=== PATIENT | female | born 1960 | race Hispanic/Latino ===

== ENCOUNTER 2019-05-14 08:48 | Emergency (ER) | payer OTHER ==
[2019-05-14] MEDS ORDERED: KETOROLAC TROMETHAMINE 30MG/ML ONE (09:22)
[2019-05-14] MEDS ORDERED: ONDANSETRON HCL 4 MG/2 ML VIAL ONE (09:22)
[2019-05-14] MEDS ORDERED: SODIUM CHLORIDE 0.9% 1000ML 1,000 ML IV ONE (09:24)
[2019-05-14 09:27] LABS: BASOPHILS % (AUTO) 0.3 % (0.0-5.0); EOSINOPHILS % (AUTO) 1.1 % (0.0-8.0); HEMATOCRIT 34.9 % (36-48); LYMPHOCYTES % (AUTO) 12.8 % (21.0-51.0); MEAN CORPUSCULAR HEMOGLOBIN 30.2 pg (27.0-33.0); MEAN CORPUSCULAR HGB CONC 33.2 g/dL (32.0-36.0); MEAN CORPUSCULAR VOLUME 90.9 fL (79-99); MONOCYTES % (AUTO) 4.4 % (3.0-13.0); NEUTROPHILS % (AUTO) 81.3 % (40.0-77.0); PLATELET COUNT (AUTO) 566 K/uL (130-400); RED BLOOD CELL COUNT(AUTO) 3.84 MIL/uL (4.00-5.50); RED CELL DISTRIBUTION WIDTH 13.8 % (11.0-15.5); WHITE BLOOD COUNT (AUTO) 8.7 K/uL (4.8-10.8)
[2019-05-14 09:34] LABS: BILIRUBIN,URINE Negative (NEGATIVE); COLOR,URINE Yellow (YELLOW); GLUCOSE, URINE (UA) Negative (NEGATIVE); KETONES,URINE Negative (NEGATIVE); LEUKOCYTE ESTERASE ,URINE Negative (NEGATIVE); NITRATE,URINE Negative (NEGATIVE); OCCULT BLOOD,URINE Negative (NEGATIVE); PROTEIN,URINE Negative (NEGATIVE); UROBILINOGEN,URINE 0.2 mg/dL (0.2-1.0)
[2019-05-14 09:36] LABS: CREATININE 0.9 mg/dL (0.5-1.5); POTASSIUM 3.8 mmol/L (3.5-5.1)
[2019-05-14 09:39] LABS: ALBUMIN 3.7 g/dL (3.5-5.0); BILIRUBIN,DIRECT 0.1 mg/dL (0.0-0.3); BILIRUBIN,TOTAL 0.8 mg/dL (0.2-1.0); TOTAL PROTEIN, SERUM 7.6 g/dL (6.0-8.3)
[2019-05-14 09:40] LABS: APPEARANCE,URINE CLEAR (CLEAR)
== END 2019-05-14 11:33 | disposition home or self-care (01) ==
LOC: EDH 08:48
DX: R42 Dizziness and giddiness (principal)
CPT/HCPCS: 36415; 80048; 80076; 81003; 82550; 83690; 84484; 85025; 87804 ×2; 93005; 96361; 96374; 96375; 99284; J1885; J2405; J7030

== ENCOUNTER 2019-08-10 08:11 | Day surgery (SDC) | payer OTHER ==
[~2019-08-10] VITALS: Ht 152.4 cm; Wt 67.1 kg
[~2019-08-10 08:11] MED LIST: SODIUM CHLORIDE 0.9% 1000ML 1,000 ML IV ONE
[2019-08-10 08:54] VITALS: BP 146/82
[2019-08-10] MEDS ORDERED: PROPOFOL 10 MG/ML 20ML VIAL IV ONE (10:01)
[2019-08-10 10:21] VITALS: BP 127/72
[2019-08-10 10:26] VITALS: BP 110/89
[2019-08-10 10:32] VITALS: BP 137/76
[2019-08-10 10:38] VITALS: BP 136/72
[2019-08-19] MEDS ORDERED: METAMUCIL POWDER PO (17:54)
[2019-08-19] MEDS ORDERED: TYLENOL PM PO (17:54)
[2019-08-19] MEDS ORDERED: ACET-66 PO (17:54)
== END 2019-08-10 10:50 | disposition home or self-care (01) ==
LOC: ENDO 08:11 → DAH 08:11 → EDSTATUS 09:15 → ENDO 10:50
PROVIDERS: ATTEND Internal Medicine Gastroenterology
DX: K22.9 Disease of esophagus, unspecified (principal); R91.8 Other nonspecific abnormal finding of lung field; R93.3 Abnormal findings on diagnostic imaging of other parts of digestive tract; R93.89 Abnormal findings on diagnostic imaging of other specified body structures; R93.5 Abnormal findings on diagnostic imaging of other abdominal regions, including retroperitoneum; Z98.890 Other specified postprocedural states
CPT/HCPCS: 43237; A4215; A4221; A4222; A4223; A4606; A4620; A4657; A4663; J2704; J7030; 43259

== ENCOUNTER 2019-08-20 07:15 | Day surgery (SDC) | payer OTHER ==
[2019-08-19 13:18] LABS: BASOPHILS % (AUTO) 0.6 % (0.0-5.0); EOSINOPHILS % (AUTO) 1.2 % (0.0-8.0); HEMATOCRIT 31.7 % (36-48); LYMPHOCYTES % (AUTO) 27.2 % (21.0-51.0); MEAN CORPUSCULAR HEMOGLOBIN 29.8 pg (27.0-33.0); MEAN CORPUSCULAR HGB CONC 32.5 g/dL (32.0-36.0); MEAN CORPUSCULAR VOLUME 91.6 fL (79-99); MONOCYTES % (AUTO) 6.4 % (3.0-13.0); NEUTROPHILS % (AUTO) 64.4 % (40.0-77.0); PLATELET COUNT (AUTO) 520 K/uL (130-400); RED BLOOD CELL COUNT(AUTO) 3.46 MIL/uL (4.00-5.50); RED CELL DISTRIBUTION WIDTH 14.5 % (11.0-15.5); WHITE BLOOD COUNT (AUTO) 8.4 K/uL (4.8-10.8)
[2019-08-19 13:37] LABS: ALBUMIN 3.9 g/dL (3.5-5.0); BILIRUBIN,TOTAL 0.5 mg/dL (0.2-1.0); POTASSIUM 3.7 mmol/L (3.5-5.1); TOTAL PROTEIN, SERUM 7.7 g/dL (6.0-8.3)
[2019-08-19 13:46] LABS: INR 0.97 (0.85-1.15); PARTIAL THROMBOPLASTIN TIME 29.2 SEC (26.3-35.5); PROTHROMBIN TIME 10.5 SEC (9.6-11.6)
[2019-08-19 17:30] VITALS: BP 140/61
[~2019-08-20] VITALS: Ht 152.4 cm; Wt 66.9 kg
[2019-08-20] VITALS (20 sets, daily range): BP systolic 110–134; BP diastolic 58–77
[~2019-08-20 07:15] MED LIST changes: +ACET-66 PO; +METAMUCIL POWDER PO; -SODIUM CHLORIDE 0.9% 1000ML 1,000 ML IV ONE; +TYLENOL PM PO
[2019-08-20] MEDS ORDERED: LACTATED RINGERS 1000ML 1,000 ML IV ONE (08:42)
[2019-08-20] MEDS: CEFAZOLIN SODIUM 1 GM VIAL ONE ×2 (08:52→11:15)
[2019-08-20] MEDS ORDERED: ONDANSETRON HCL 4 MG/2 ML VIAL ONE (11:14)
[2019-08-20] MEDS ORDERED: MIDAZOLAM HCL 1 MG/ML 2ML VIAL ONE (11:14)
[2019-08-20] MEDS ORDERED: LIDOCAINE PF 2% 5ML ABBOJECT ONE ×2 (11:14→11:16)
[2019-08-20] MEDS ORDERED: NEOSTIGMINE 5MG/5ML SYR IV ONE (11:14)
[2019-08-20] MEDS ORDERED: ROCURONIUM 10MG/1ML SYR 10 MG/ML ML ONE (11:14)
[2019-08-20] MEDS ORDERED: GLYCOPYRROLATE 1 MG/5 ML SYRINGE ONE (11:14)
[2019-08-20] MEDS ORDERED: PROPOFOL 10 MG/ML 20ML VIAL IV ONE (11:14)
[2019-08-20] MEDS ORDERED: FENTANYL CITRATE PF 50 MCG/1 ML 2ML VIAL ONE (11:14)
[2019-08-20] MEDS ORDERED: DEXAMETHASONE SOD PHOSPHATE 10MG/ML 1ML VIAL ONE (11:14)
[2019-08-20] MEDS ORDERED: SUCCINYLCHOLINE CHLORIDE 20 MG/ML 10 ML VIAL ONE (11:16)
[2019-08-20] MEDS ORDERED: TRAM50TA4 PO (12:30)
[2019-08-20] MEDS ORDERED: TRAMADOL HCL 50 MG TABLET PO PRN ×2 (12:45)
[2019-08-20] MEDS ORDERED: ACETAMINOPHEN 325 MG TAB PO PRN (12:45)
[2019-08-20] MEDS ORDERED: MEPERIDINE-PF 25 MG/ML SYG ONE (13:04)
--- NOTE | 2019-08-20 13:50 | NUR ---
PATIENT ARRIVED TO DAY PATIENT VIA STRETCHER BY WHIT NAVARRO. PATIENT AAOX3, RESPIRATIONS UNLABORED, VITAL SIGNS STABLE. DRESSING TO ANTERIOR NECK PRESENT, CLEAN/DRY/INTACT. NO BLEEDING OR DRAINAGE NOTED. PATIENT DENIES ANY PAIN AT THIS TIME.
--- NOTE | 2019-08-20 14:26 | NUR ---
DISCHARGE INSTRUCTIONS PROVIDED VIA TELEPHONE TO PATIENT'S SON (CAMILLA). FOLLOW UP APPOINTMENTS PROVIDED AND PRESCRIPTIONS PROVIDED TO PATIENT WELL. INSTRUCTIONS ON INCISION CARE WERE PROVIDED TO PATIENT AND SON. ALL QUESTIONS/CONCERNS ADDRESSED.
--- NOTE | 2019-08-20 14:55 | NUR ---
PATIENT DISCHARGED FROM FACILITY VIA WHEELCHAIR AND ASSISTED INTO PRIVATE VEHICLE DRIVEN BY SON.
== END 2019-08-20 14:55 | disposition home or self-care (01) ==
LOC: DAH 07:15
PROVIDERS: ATTEND Thoracic Surgery (Cardiothoracic Vascular Surgery)
DX: R91.8 Other nonspecific abnormal finding of lung field (principal); K22.9 Disease of esophagus, unspecified; M19.90 Unspecified osteoarthritis, unspecified site; E03.9 Hypothyroidism, unspecified; Z79.899 Other long term (current) drug therapy; Z79.01 Long term (current) use of anticoagulants
CPT/HCPCS: 36415; 39402; 71045; 71046; 80053; 85025; 85610; 85730; 86850; 86900; 86901; 86922; 93005; A4213; A4215; A4221; A4222; A4223; A4663; A6260; G0168; J0330; J0690; J1100; J2001 ×2; J2175; J2250; J2405; J2704; J2710; J3010; J3490; J7030 ×2; J7120 ×2

== ENCOUNTER 2019-09-20 08:00 | Inpatient (IN) | payer OTHER ==
[~2019-09-20] VITALS: Ht 149.9 cm; Wt 66.2 kg
[2019-09-20 08:43] LABS: BASOPHILS % (AUTO) 0.8 % (0.0-5.0); EOSINOPHILS % (AUTO) 2.1 % (0.0-8.0); HEMATOCRIT 31.7 % (36-48); LYMPHOCYTES % (AUTO) 38.8 % (21.0-51.0); MEAN CORPUSCULAR HEMOGLOBIN 30.4 pg (27.0-33.0); MEAN CORPUSCULAR HGB CONC 32.8 g/dL (32.0-36.0); MEAN CORPUSCULAR VOLUME 92.7 fL (79-99); MONOCYTES % (AUTO) 6.8 % (3.0-13.0); NEUTROPHILS % (AUTO) 51.2 % (40.0-77.0); PLATELET COUNT (AUTO) 532 K/uL (130-400); RED BLOOD CELL COUNT(AUTO) 3.42 MIL/uL (4.00-5.50); RED CELL DISTRIBUTION WIDTH 14.1 % (11.0-15.5); WHITE BLOOD COUNT (AUTO) 7.9 K/uL (4.8-10.8)
[2019-09-20 09:04] LABS: POTASSIUM 3.6 mmol/L (3.5-5.1)
[2019-09-20 09:13] LABS: INR 0.96 (0.85-1.15); PARTIAL THROMBOPLASTIN TIME 29.7 SEC (26.3-35.5); PROTHROMBIN TIME 10.4 SEC (9.6-11.6)
[2019-09-20 12:26] VITALS: BP 149/77
--- NOTE | 2019-09-20 14:35 | NUR ---
PLATELET INFORMED Jonn JOYCE RN OF ABNORMAL PLATELET LEVEL. PER DR. TATUM, PROCEED WITH PLANNED PROCEDURE.
[2019-09-21] VITALS (25 sets, daily range): BP systolic 70–155; BP diastolic 45–85
[2019-09-21] MEDS ORDERED: LACTATED RINGERS 1000ML 1,000 ML IV ONE (10:05)
[2019-09-21] MEDS ORDERED: CEFAZOLIN SODIUM 1 GM VIAL ONE (12:52)
[2019-09-21] MEDS ORDERED: CEFUROXIME SODIUM 1.5 GM VIAL ONE (12:54)
[2019-09-21] MEDS ORDERED: MIDAZOLAM HCL 1 MG/ML 2ML VIAL ONE (13:47)
[2019-09-21] MEDS ORDERED: SUCCINYLCHOLINE CHLORIDE 20 MG/ML 10 ML VIAL ONE (13:47)
[2019-09-21] MEDS ORDERED: DEXAMETHASONE SOD PHOSPHATE 10MG/ML 1ML VIAL ONE (13:47)
[2019-09-21] MEDS ORDERED: GLYCOPYRROLATE 1 MG/5 ML SYRINGE ONE (13:47)
[2019-09-21] MEDS ORDERED: NEOSTIGMINE 5MG/5ML SYR IV ONE (13:47)
[2019-09-21] MEDS ORDERED: ONDANSETRON HCL 4 MG/2 ML VIAL ONE (13:47)
[2019-09-21] MEDS ORDERED: LIDOCAINE PF 2% 5ML ABBOJECT ONE ×2 (13:47→13:48)
[2019-09-21] MEDS ORDERED: PROPOFOL 10 MG/ML 20ML VIAL IV ONE (13:47)
[2019-09-21] MEDS ORDERED: FENTANYL CITRATE PF 50 MCG/1 ML 2ML VIAL ONE (13:47)
[2019-09-21] MEDS ORDERED: ROCURONIUM 10MG/1ML SYR 10 MG/ML ML ONE (13:48)
[2019-09-21] MEDS ORDERED: MEPERIDINE-PF 25 MG/ML SYG ONE ×4 (15:14→16:24)
[2019-09-21] MEDS ORDERED: Q-PUMP 1 EACH IRRIG SCH (15:30)
[2019-09-21] MEDS ORDERED: ROPIVACAINE 0.5% 5MG/ML 30ML IJ ONE (15:40)
[2019-09-21] MEDS ORDERED: TRAMADOL HCL 50 MG TABLET PO PRN (16:45)
[2019-09-21] MEDS: KETOROLAC TROMETHAMINE 30MG/ML IV SCH ×2 (17:59→23:07)
[2019-09-21] MEDS ORDERED: KETOROLAC TROMETHAMINE 30MG/ML IV PRN (18:00)
[2019-09-21] MEDS: TRAMADOL HCL 50 MG TABLET PO PRN (20:41)
[2019-09-21] MEDS: CEFAZOLIN SODIUM 1 GM VIAL IVP SCH (23:08)
[2019-09-22 03:10] VITALS: BP 120/74
[2019-09-22 05:40] LABS: HEMATOCRIT 29.3 % (36-48); MEAN CORPUSCULAR HEMOGLOBIN 30.1 pg (27.0-33.0); MEAN CORPUSCULAR HGB CONC 32.4 g/dL (32.0-36.0); MEAN CORPUSCULAR VOLUME 92.7 fL (79-99); RED BLOOD CELL COUNT(AUTO) 3.16 MIL/uL (4.00-5.50); RED CELL DISTRIBUTION WIDTH 14.6 % (11.0-15.5); WHITE BLOOD COUNT (AUTO) 11.2 K/uL (4.8-10.8)
[2019-09-22 05:57] LABS: CREATININE 1.1 mg/dL (0.5-1.5); POTASSIUM 4.6 mmol/L (3.5-5.1)
[2019-09-22] MEDS: KETOROLAC TROMETHAMINE 30MG/ML IV SCH ×3 (06:24→18:30)
[2019-09-22] MEDS: TRAMADOL HCL 50 MG TABLET PO PRN ×3 (06:24→20:43)
[2019-09-22] MEDS: CEFAZOLIN SODIUM 1 GM VIAL IVP SCH ×2 (06:24→15:01)
[2019-09-22 08:30] VITALS: BP 124/75
--- NOTE | 2019-09-22 10:47 | NUR ---
CM NOTE/IA MEET WITH PATIENT IN ROOM. PER PATIENT LIVES WITH SPOUSE AND GRANDCHILDREN STAY WITH THEM AT TIMES, INDEPENDENT WITH ADLS, NO DME IN USE, AND FEELS SAFE TO RETURN HOME ONCE DISCHARGED. Addendum: 09/23/19 at 1048 by ALMAZ NGUYEN RN CM Amended: Links added.
[2019-09-22 11:00] VITALS: BP 129/64
[2019-09-22 16:00] VITALS: BP 126/74
[2019-09-22 19:00] VITALS: BP 128/68
[2019-09-23] VITALS: BP 133/72
[2019-09-23] MEDS: KETOROLAC TROMETHAMINE 30MG/ML IV SCH ×4 (01:14→18:15)
[2019-09-23 04:00] VITALS: BP 121/68
[2019-09-23] MEDS: TRAMADOL HCL 50 MG TABLET PO PRN ×3 (05:21→21:40)
[2019-09-23 08:00] VITALS: BP 127/75
[2019-09-23 12:00] VITALS: BP 136/77
[2019-09-23] MEDS ORDERED: ROPIVACAINE 0.2% 2MG/ML 100ML VIAL IJ ONE (12:00)
[2019-09-23 16:00] VITALS: BP 137/80
[2019-09-23 20:00] VITALS: BP 148/70
[2019-09-24] VITALS: BP 149/82
[2019-09-24] MEDS: KETOROLAC TROMETHAMINE 30MG/ML IV SCH
[2019-09-24 04:00] VITALS: BP 143/76
[2019-09-24] MEDS: TRAMADOL HCL 50 MG TABLET PO PRN ×3 (04:15→17:39)
[2019-09-24 07:00] VITALS: BP 135/75
--- NOTE | 2019-09-24 08:00 | NUR ---
ASSESSMENT ENCOUNTERED PT A&OX3, CALM COOPERATIVE BUT DOES NOT APPEAR TO BE IN ANY DISTRESS NOR ANY NEURO DEFICITS PRESENT. PT DOES C/O RT CHEST TUBE SITE DISCOMFORT WITH ACTIVITY AND DYSPNEA ON EXERTION. PT IS AMBULATORY, GAIT SLOW BUT STEADY WITH 1-2 PERSON ASSIST. PT IS ABLE TO TOLERATE FOODS, FLUIDS AND MEDICATION WITH NO THROAT CLEARING OR COUGH. CALL LIGHT WITHIN REACH.
[2019-09-24 11:00] VITALS: BP 127/74
[2019-09-24 16:00] VITALS: BP 130/76
[2019-09-24 20:00] VITALS: BP 140/82
[2019-09-24] MEDS: ACETAMINOPHEN 325 MG TAB PO PRN (22:08)
[2019-09-25] VITALS (7 sets, daily range): BP systolic 117–146; BP diastolic 72–95
[2019-09-25] MEDS: TRAMADOL HCL 50 MG TABLET PO PRN ×3 (02:12→16:10)
[2019-09-25] MEDS: ACETAMINOPHEN 325 MG TAB PO PRN (06:46)
--- NOTE | 2019-09-25 08:00 | NUR ---
ASSESSMENT ENCOUNTERED PT IN BED, ASLEEP BUT AROUSEABLE, A&OX3, C/O CONTINUOUS RT CHEST PAIN WITH CHEST TUBE IN PLACE S/P RL LOBECTOMY, PT IS PENDING CHEST TUBE REMOVAL BY DR AHMADI, NO LEAK PRESENT, CHEST TUBE SECURED, QPUMP IN PLACE AND SECURED WITH CHEST TUBE DRESSING. PT HAS NOT BEEN HUNGRY AND RELUCTANT TO REPOSITION SELF DUE TO CHEST TUBE DISCOMFORT. CALL LIGHT WITHIN REACH.
[2019-09-25] MEDS: HYDROCODONE/ACETAMINOPHEN 10/325 MG TAB PO PRN ×2 (08:24→18:04)
--- NOTE | 2019-09-25 09:30 | NUR ---
DR VALLE AT BEDSIDE UPDATE GIVEN, ORDERS RECEIVED.
--- NOTE | 2019-09-25 10:00 | NUR ---
CHEST TUBE REMOVED AND QPUMP REMOVED, TOLERATED WELL, CALL LIGHT WITHIN REACH.
[2019-09-25] MEDS ORDERED: GABAPENTIN 100 MG CAPSULE PO SCH (21:00)
[2019-09-25] MEDS: ENOXAPARIN SODIUM 30 MG/0.3 ML SQ SCH (21:12)
[2019-09-26] MEDS: HYDROCODONE/ACETAMINOPHEN 10/325 MG TAB PO PRN (03:15)
[2019-09-26 03:45] VITALS: BP 144/84
[2019-09-26] MEDS: TRAMADOL HCL 50 MG TABLET PO PRN (05:54)
[2019-09-26 07:30] VITALS: BP 132/85
[2019-09-26] MEDS ORDERED: GABAPENTIN 300 MG CAPSULE ONE (07:45)
[2019-09-26] MEDS: GABAPENTIN 300 MG CAPSULE PO SCH ×3 (07:51→20:59)
[2019-09-26 11:43] VITALS: BP 136/78
[2019-09-26 15:30] VITALS: BP 121/53
[2019-09-26 19:54] VITALS: BP 122/64
[2019-09-26] MEDS: ENOXAPARIN SODIUM 30 MG/0.3 ML SQ SCH (21:00)
[2019-09-26 23:18] VITALS: BP 129/76
[2019-09-27 03:48] VITALS: BP 121/73
[2019-09-27] MEDS: HYDROCODONE/ACETAMINOPHEN 10/325 MG TAB PO PRN (04:28)
[2019-09-27] MEDS: GABAPENTIN 300 MG CAPSULE PO SCH ×3 (07:19→20:09)
--- NOTE | 2019-09-27 08:00 | NUR ---
ASSESSMENT PT IS AAOX3 DENIES CP DENIES SOB DENIES NV AT THIS TIME, RESTING IN BED. NO VISIBLE SIGNS OF DISTRESS NOTED. CALL LIGHT WITHIN REACH.
[2019-09-27 08:40] VITALS: BP 130/80
[2019-09-27] MEDS: TRAMADOL HCL 50 MG TABLET PO PRN ×2 (10:07→20:09)
[2019-09-27 12:45] VITALS: BP 109/65
[2019-09-27 18:30] VITALS: BP 127/49
[2019-09-27] MEDS: ENOXAPARIN SODIUM 30 MG/0.3 ML SQ SCH (20:10)
[2019-09-27 20:31] VITALS: BP 124/68
[2019-09-27 23:58] VITALS: BP 115/66
[2019-09-28 03:56] VITALS: BP 111/75
--- NOTE | 2019-09-28 08:00 | NUR ---
SARAH PAEZ IN TO SEE PT. DC ORDERS GIVEN,
[2019-09-28 08:15] VITALS: BP 125/71
[2019-09-28] MEDS: TRAMADOL HCL 50 MG TABLET PO PRN (08:18)
[2019-09-28] MEDS ORDERED: GABA300C PO (08:47)
[2019-09-28] MEDS ORDERED: TRAM50TA4 PO (08:47)
[2019-09-28] MEDS ORDERED: ACET-2247 PO (08:47)
[2019-09-28] MEDS ORDERED: CYCLOBENZAPRINE HCL 10 MG TABLET PO PRN (09:15)
[2019-09-28] MEDS: GABAPENTIN 300 MG CAPSULE PO SCH (09:30)
[2019-09-28 11:43] VITALS: BP 111/82
--- NOTE | 2019-09-28 13:30 | NUR ---
DISCHARGED NOW USING TEACH BACK.VERBALIZES UNDERSTANDING OF ALL INST. GIVEN. RX ELECTRONIC SENT TO PHARM. OF CHOICE. SALINE LOCK AND HEART MONITOR REMOVED . WHEELED DOWN STAIRS . FAMILY WAITING.
== END 2019-09-28 13:57 | disposition home or self-care (01) | DRG 165 ==
LOC: EDSTATUS 08:00 → DAHIP 09-21 09:33 → 4AH 09-21 17:08 → 4CH 09-26 17:05
PROVIDERS: ADMIT Thoracic Surgery (Cardiothoracic Vascular Surgery); ATTEND Thoracic Surgery (Cardiothoracic Vascular Surgery)
PROC: 0BTF0ZZ Resection of Right Lower Lung Lobe, Open Approach (ICD-10-PCS; principal; 2019-09-21 13:48)
DX: R91.8 Other nonspecific abnormal finding of lung field (principal); E87.70 Fluid overload, unspecified; G89.12 Acute post-thoracotomy pain; E03.9 Hypothyroidism, unspecified; R59.0 Localized enlarged lymph nodes; R06.89 Other abnormalities of breathing; M19.90 Unspecified osteoarthritis, unspecified site; Z79.899 Other long term (current) drug therapy; Z80.42 Family history of malignant neoplasm of prostate; Z80.0 Family history of malignant neoplasm of digestive organs; Z20.828 Contact with and (suspected) exposure to other viral communicable diseases
CPT/HCPCS: 36415; 71045; 80048; 85025; 85027; 85610; 85730; 86850; 86900; 86901; 86922; 87635; 97039; A7048; G0378; J0330; J0690; J0697; J1100; J1650; J1885; J2001; J2175; J2250; J2405; J2704; J2710; J2795; J3010; J3490; J7030; J7040; J7120

== ENCOUNTER 2021-10-15 02:07 | Emergency (ER) | payer MEDICARE, OTHER ==
[~2021-10-15] VITALS: Ht 160 cm; Wt 93.4 kg
[~2021-10-15 02:07] MED LIST changes: +ACET-2247 PO; -ACET-66 PO; +GABA300C PO; -METAMUCIL POWDER PO; +TRAM50TA4 PO; -TYLENOL PM PO
[2021-10-15 02:33] LABS: BASOPHILS % (AUTO) 0.4 % (0.0-5.0); EOSINOPHILS % (AUTO) 0.7 % (0.0-8.0); HEMATOCRIT 32.2 % (36-48); LYMPHOCYTES % (AUTO) 22.6 % (21.0-51.0); MEAN CORPUSCULAR HEMOGLOBIN 31.7 pg (27.0-33.0); MEAN CORPUSCULAR HGB CONC 33.5 g/dL (32.0-36.0); MEAN CORPUSCULAR VOLUME 94.4 fL (79-99); MONOCYTES % (AUTO) 2.6 % (3.0-13.0); NEUTROPHILS % (AUTO) 73.2 % (40.0-77.0); PLATELET COUNT (AUTO) 510 K/uL (130-400); RED BLOOD CELL COUNT(AUTO) 3.41 MIL/uL (4.00-5.50); RED CELL DISTRIBUTION WIDTH 13.3 % (11.0-15.5); WHITE BLOOD COUNT (AUTO) 13.3 K/uL (4.8-10.8)
[2021-10-15 02:36] LABS: APPEARANCE,URINE CLEAR (CLEAR); BILIRUBIN,URINE SMALL (NEGATIVE); COLOR,URINE YELLOW (YELLOW); GLUCOSE, URINE (UA) NEGATIVE (NEGATIVE); KETONES,URINE 5 mg/dL (NEGATIVE); LEUKOCYTE ESTERASE ,URINE TRACE (NEGATIVE); NITRATE,URINE NEGATIVE (NEGATIVE); OCCULT BLOOD,URINE NEGATIVE (NEGATIVE); PROTEIN,URINE TRACE mg/dL (NEGATIVE); UROBILINOGEN,URINE 0.2 mg/dL (0.2-1.0)
[2021-10-15] MEDS ORDERED: LIDOCAINE HCL 2% VISCOUS 15 ML UDCUP ONE (02:40)
[2021-10-15] MEDS ORDERED: MAG/ALUM/SIMETH 30 ML UDCUP ONE (02:40)
[2021-10-15] MEDS ORDERED: PANTOPRAZOLE 40 MG/VIAL ONE (02:40)
[2021-10-15 02:44] LABS: CARBON DIOXIDE 21 mmol/L (21-32); CHLORIDE 108 mmol/L (101-111); CREATININE 1.3 mg/dL (0.5-1.5); GLOMERULAR FILTR. RATE CALC 44 mL/min (>60); GLUCOSE,RANDOM 117 mg/dL (70-105); POTASSIUM 3.9 mmol/L (3.5-5.1); SODIUM SERUM 141 mmol/L (136-145); UREA NITROGEN, BLOOD 29 mg/dL (7-18)
[2021-10-15 02:51] LABS: ALANINE AMINOTRANSFERASE 34 U/L (12-78); ALBUMIN 3.5 g/dL (3.5-5.0); ASPARTATE AMINOTRANSFERASE 12 U/L (10-37); LIPASE 86 U/L (114-286); TOTAL PROTEIN, SERUM 7.1 g/dL (6.0-8.3)
[2021-10-15 03:00] LABS: BACTERIA,URINE None Seen /HPF (None Seen); RBC,URINE 0-1 /HPF (0-1); SQUAMOUS EPITHELIAL CELL,UR Moderate /HPF (0-2)
[2021-10-15] MEDS ORDERED: PANTOPRAZOLE 40 MG/VIAL IVP ONE (03:00)
[2021-10-15] MEDS ORDERED: LIDOCAINE HCL 2% VISCOUS 15 ML UDCUP PO ONE (03:00)
[2021-10-15] MEDS ORDERED: MAG/ALUM/SIMETH 30 ML UDCUP PO ONE (03:00)
[2021-10-15 03:01] LABS: HYALINE CASTS, URINE 0-1 /LPF (0-1 /LPF)
[2021-10-15] MEDS ORDERED: PANT40GR PO (03:49)
[2021-10-15 03:55] VITALS: BP 143/85
== END 2021-10-15 03:59 | disposition home or self-care (01) ==
LOC: EDH 02:07
DX: K29.70 Gastritis, unspecified, without bleeding (principal); Z79.899 Other long term (current) drug therapy; Z98.890 Other specified postprocedural states
CPT/HCPCS: 99285; 96374; 71045; 84484; 80053; 83690; 85025; 87088; 81001; 36415; 93005; C9113

== ENCOUNTER 2021-11-18 08:06 | Emergency (ER) | payer MEDICARE ==
[~2021-11-18] VITALS: Ht 152.4 cm; Wt 72.6 kg
[~2021-11-18 08:06] MED LIST changes: +PANT40GR PO
[2021-11-18 08:27] LABS: APPEARANCE,URINE CLEAR (CLEAR); BILIRUBIN,URINE SMALL (NEGATIVE); COLOR,URINE YELLOW (YELLOW); GLUCOSE, URINE (UA) NEGATIVE (NEGATIVE); KETONES,URINE NEGATIVE (NEGATIVE); LEUKOCYTE ESTERASE ,URINE NEGATIVE (NEGATIVE); NITRATE,URINE NEGATIVE (NEGATIVE); OCCULT BLOOD,URINE NEGATIVE (NEGATIVE); PROTEIN,URINE NEGATIVE (NEGATIVE); UROBILINOGEN,URINE 0.2 mg/dL (0.2-1.0)
[2021-11-18 08:28] LABS: BASOPHILS % (AUTO) 0.3 % (0.0-5.0); EOSINOPHILS % (AUTO) 0.9 % (0.0-8.0); HEMATOCRIT 31.2 % (36-48); LYMPHOCYTES % (AUTO) 24.3 % (21.0-51.0); MEAN CORPUSCULAR HEMOGLOBIN 31.8 pg (27.0-33.0); MEAN CORPUSCULAR HGB CONC 33.7 g/dL (32.0-36.0); MEAN CORPUSCULAR VOLUME 94.5 fL (79-99); MONOCYTES % (AUTO) 5.5 % (3.0-13.0); NEUTROPHILS % (AUTO) 68.5 % (40.0-77.0); PLATELET COUNT (AUTO) 582 K/uL (130-400); RED CELL DISTRIBUTION WIDTH 13.7 % (11.0-15.5); WHITE BLOOD COUNT (AUTO) 15.9 K/uL (4.8-10.8)
[2021-11-18] MEDS ORDERED: 0.9%NACL 1000ML 1,000 ML IV ONE (08:30)
[2021-11-18] MEDS ORDERED: LIDOCAINE HCL 2% VISCOUS 15 ML UDCUP PO ONE (08:30)
[2021-11-18] MEDS ORDERED: MAG/ALUM/SIMETH 30 ML UDCUP PO ONE (08:30)
[2021-11-18] MEDS ORDERED: KETOROLAC 30MG VIAL (30MG/ML) IVP ONE (08:30)
[2021-11-18] MEDS ORDERED: PANTOPRAZOLE 40 MG/VIAL IVP ONE (08:30)
[2021-11-18] MEDS ORDERED: DICYCLOMINE HCL 10 MG/5 ML ML PO ONE (08:30)
[2021-11-18 08:40] LABS: CARBON DIOXIDE 28 mmol/L (21-32); CHLORIDE 104 mmol/L (101-111); CREATININE 1.2 mg/dL (0.5-1.5); GLOMERULAR FILTR. RATE CALC 48 mL/min (>60); GLUCOSE,RANDOM 106 mg/dL (70-105); POTASSIUM 3.4 mmol/L (3.5-5.1); SODIUM SERUM 142 mmol/L (136-145); UREA NITROGEN, BLOOD 18 mg/dL (7-18)
[2021-11-18 08:44] LABS: ALANINE AMINOTRANSFERASE 48 U/L (12-78); ALBUMIN 3.3 g/dL (3.5-5.0); ASPARTATE AMINOTRANSFERASE 18 U/L (10-37); TOTAL PROTEIN, SERUM 7.4 g/dL (6.0-8.3)
[2021-11-18 08:45] LABS: LIPASE < 50 U/L (114-286)
[2021-11-18] MEDS ORDERED: ZOSYN 3.375GM +NS 50ML IV SCH (11:30)
[2021-11-18] MEDS ORDERED: AMOX1TAB16 PO (11:41)
[2021-11-18 12:07] VITALS: BP 129/69
[2021-11-19] MEDS ORDERED: FERR-72 PO (14:28)
== END 2021-11-18 12:15 | disposition home or self-care (01) ==
LOC: EDH 08:06
DX: K80.50 Calculus of bile duct without cholangitis or cholecystitis without obstruction (principal); D72.829 Elevated white blood cell count, unspecified; D64.9 Anemia, unspecified; Z79.899 Other long term (current) drug therapy; Z98.890 Other specified postprocedural states
CPT/HCPCS: 99285; 96365; 76705; 96361; 96375; 84484; 80053; 83690; 85025; 81003; 36415; 93005; J7030; J1885; J2543; C9113

== ENCOUNTER 2021-11-19 07:05 | Observation (INO) | payer MEDICARE ==
[~2021-11-19] VITALS: Ht 152.4 cm; Wt 72.6 kg
[~2021-11-19 07:05] MED LIST changes: +AMOX1TAB16 PO
[2021-11-19] MEDS ORDERED: ONDANSETRON 4MG INJ IVP ONE (07:30)
[2021-11-19] MEDS ORDERED: KETOROLAC 30MG VIAL (30MG/ML) IVP ONE (07:30)
[2021-11-19] MEDS ORDERED: 0.9%NACL 1000ML 1,000 ML IV ONE (07:30)
[2021-11-19 08:21] LABS: BASOPHILS % (AUTO) 0.4 % (0.0-5.0); EOSINOPHILS % (AUTO) 1.4 % (0.0-8.0); HEMATOCRIT 25.9 % (36-48); LYMPHOCYTES % (AUTO) 24.4 % (21.0-51.0); MEAN CORPUSCULAR HEMOGLOBIN 31.5 pg (27.0-33.0); MEAN CORPUSCULAR HGB CONC 32.8 g/dL (32.0-36.0); MEAN CORPUSCULAR VOLUME 95.9 fL (79-99); MONOCYTES % (AUTO) 6.3 % (3.0-13.0); NEUTROPHILS % (AUTO) 67.1 % (40.0-77.0); PLATELET COUNT (AUTO) 485 K/uL (130-400); RED CELL DISTRIBUTION WIDTH 13.7 % (11.0-15.5); WHITE BLOOD COUNT (AUTO) 9.9 K/uL (4.8-10.8)
[2021-11-19 08:32] LABS: POTASSIUM 3.2 mmol/L (3.5-5.1)
[2021-11-19 08:37] LABS: ALBUMIN 2.7 g/dL (3.5-5.0); TOTAL PROTEIN, SERUM 6.1 g/dL (6.0-8.3)
[2021-11-19] MEDS ORDERED: ONDANSETRON 4MG INJ IVP PRN (09:30)
[2021-11-19] MEDS: ZOSYN 3.375GM +NS 50ML IV SCH ×2 (10:06→19:54)
[2021-11-19] MEDS: 0.9%NACL 1000ML 1,000 ML IV SCH ×2 (10:06→19:54)
[2021-11-19 12:23] LABS: APPEARANCE,URINE CLEAR (CLEAR); BILIRUBIN,URINE NEGATIVE (NEGATIVE); COLOR,URINE YELLOW (YELLOW); GLUCOSE, URINE (UA) NEGATIVE (NEGATIVE); KETONES,URINE 5 mg/dL (NEGATIVE); LEUKOCYTE ESTERASE ,URINE NEGATIVE (NEGATIVE); NITRATE,URINE NEGATIVE (NEGATIVE); OCCULT BLOOD,URINE NEGATIVE (NEGATIVE); PROTEIN,URINE NEGATIVE (NEGATIVE)
[2021-11-19 12:58] LABS: BACTERIA,URINE Rare /HPF (None Seen); HYALINE CASTS, URINE 0-1 /LPF (0-1 /LPF); MUCUS,URINE Moderate LPF (None Seen); RBC,URINE 0-1 /HPF (0-1); SQUAMOUS EPITHELIAL CELL,UR Rare /HPF (0-2)
[2021-11-19] MEDS ORDERED: FERR-72 PO (14:28)
[2021-11-19 19:00] VITALS: BP 140/60
[2021-11-19 20:00] VITALS: BP 133/62
[2021-11-19] MEDS: MORPHINE 2 MG SYG IVP PRN (20:19)
[2021-11-20] VITALS: BP 128/69
[2021-11-20] MEDS: ZOSYN 3.375GM +NS 50ML IV SCH ×3 (00:44→18:05)
[2021-11-20 04:00] VITALS: BP 128/69
[2021-11-20] MEDS: 0.9%NACL 1000ML 1,000 ML IV SCH ×2 (04:57→18:08)
[2021-11-20 08:02] VITALS: BP 141/68
[2021-11-20 11:51] VITALS: BP 149/63
[2021-11-20 15:56] VITALS: BP 136/73
[2021-11-20 20:00] VITALS: BP 144/72
[2021-11-20] MEDS: MORPHINE 2 MG SYG IVP PRN (22:43)
[2021-11-21] VITALS: BP 144/75
[2021-11-21] MEDS: 0.9%NACL 1000ML 1,000 ML IV SCH ×2 (01:10→11:06)
[2021-11-21] MEDS: ZOSYN 3.375GM +NS 50ML IV SCH ×2 (01:10→08:35)
[2021-11-21 04:00] VITALS: BP 139/71
[2021-11-21 07:38] VITALS: BP 139/71
[2021-11-21 11:20] VITALS: BP 143/77
[2021-11-21] MEDS: MORPHINE 2 MG SYG IVP PRN (11:21)
[2021-11-21 11:58] LABS: MEAN CORPUSCULAR HEMOGLOBIN 31.9 pg (27.0-33.0); MEAN CORPUSCULAR HGB CONC 34.2 g/dL (32.0-36.0); MEAN CORPUSCULAR VOLUME 93.4 fL (79-99); PLATELET COUNT (AUTO) 492 K/uL (130-400); RED BLOOD CELL COUNT(AUTO) 2.57 MIL/uL (4.00-5.50); WHITE BLOOD COUNT (AUTO) 6.6 K/uL (4.8-10.8)
[2021-11-21] MEDS ORDERED: DIPHENHYDRAMINE HCL 25 MG CAPSULE PO ONE (12:00)
[2021-11-21 12:11] LABS: POTASSIUM 3.7 mmol/L (3.5-5.1)
[2021-11-21 12:55] LABS: BASOPHILS % (MANUAL) 1 % (0-2); EOSINOPHILS % (MANUAL) 3 % (1-6); LYMPHOCYTES % (MANUAL) 33 % (22-44); MAN.DIFF COMMENT-IMPRESSION MANUAL DIFFERENTIAL; MONOCYTES % (MANUAL) 4 % (2-9); PLATELET MORPHOLOGY COMMENT ADEQUATE; SEGMENTED NEUTROPHILS % 59 % (40-70)
[2021-11-21 15:37] VITALS: BP 148/76
== END 2021-11-21 17:45 | disposition home or self-care (01) ==
LOC: EDH 07:05 → EDHIP 09:15 → 4CH 18:38
PROVIDERS: ADMIT Internal Medicine Hematology & Oncology; ATTEND Internal Medicine Hematology & Oncology
DX: K80.00 Calculus of gallbladder with acute cholecystitis without obstruction (principal); D64.9 Anemia, unspecified
CPT/HCPCS: 96365; 96366 ×3; 96375; 99284; 80053; 83690; 85025 ×2; 81001; 36415 ×2; 78226; 76705; 96361; 83735; 80048; G0378 ×57; J7030; J2405; J1885; J2543 ×8; A9537